=== PATIENT | female | born 1970 | race African-American/Black ===

== ENCOUNTER 2017-06-29 19:28 | Emergency (ER) | payer SELFPAY ==
[~2017-06-29] VITALS: Ht 157.5 cm; Wt 50.0 kg
[2017-06-29] MEDS ORDERED: IBUPROFEN 600MG TABLET PO ONE (23:45)
[2017-06-30 00:11] LABS: BASOPHILS % 0.5 % (0.0-2.0); EOSINOPHILS % 0.6 % (0.0-5.0); HEMATOCRIT. 41.2 % (36.0-48.0); HEMOGLOBIN. 13.7 g/dL (12.0-16.0); LYMPHOCYTES % 36.1 % (20.0-50.0); MEAN CORPUSCULAR HEMOGLOBIN 30.6 pg (28.0-32.0); MEAN PLATELET VOLUME 8.6 fl (7.4-10.4); MONOCYTES % 6.4 % (2.0-8.0); NEUTROPHILS % 56.4 % (40.0-76.0); PLATELET 276 x1000/uL (130-400); RED BLOOD CELL COUNT 4.48 mill/uL (4.2-5.4); RED CELL DISTRIBUTION WIDTH 14.8 % (11.6-14.6)
[2017-06-30 00:16] LABS: CHLORIDE 100 mEq/L (98-107)
[2017-06-30 00:31] LABS: CARBON DIOXIDE 30 mEq/L (21-32)
[2017-06-30 00:36] LABS: CLARITY URINE CLEAR (CLEAR); COLOR URINE YELLOW (YELLOW); GLUCOSE URINE NEGATIVE (NEGATIVE); KETONES URINE NEGATIVE (NEGATIVE); LEUKOCYTE ESTERASE URINE TRACE (NEGATIVE); NITRITE URINE NEGATIVE (NEGATIVE); OCCULT BLOOD URINE NEGATIVE (NEGATIVE); PH URINE 6.5 (4.5-8.0); PROTEIN URINE NEGATIVE (NEGATIVE); SPECIFIC GRAVITY URINE 1.007 (1.005-1.030); UROBILINOGEN URINE 0.2 E.U./dL (0.2-1.0)
[2017-06-30 01:33] VITALS: BP 126/84
[2017-06-30] MEDS ORDERED: CEPHALEXIN 500MG CAPSULE PO SCH (02:00)
== END 2017-06-30 03:22 | disposition home or self-care (01) ==
LOC: ER 19:28
DX: J02.9 Acute pharyngitis, unspecified (principal); R10.30 Lower abdominal pain, unspecified; F12.10 Cannabis abuse, uncomplicated
CPT/HCPCS: 36415; 80053; 81001; 81025; 84443; 85025; 87070; 87430; 99284